=== PATIENT | female | born 1995 | race Caucasian/White ===

== ENCOUNTER 2022-03-07 09:33 | Outpatient (CLI) | payer BC, SELFPAY | END 2022-03-07 09:34 | disposition home or self-care (01) | PROVIDERS: Visit Provider Obstetrics & Gynecology | DX: Z01.419 Encounter for gynecological examination (general) (routine) without abnormal findings (principal); N87.9 Dysplasia of cervix uteri, unspecified; Z13.6 Encounter for screening for cardiovascular disorders | CPT/HCPCS: 80061; 87624; 88175 ==

== ENCOUNTER 2022-11-16 07:15 | Outpatient (CLI) | payer OTHER, SELFPAY ==
--- NOTE | 2022-11-16 07:15 | CRLHL7_ITS ---
For Patients: As a result of the Century Cures Act, medical imaging exams and procedure reports are released immediately into your electronic medical record. You may view this report before your referring provider. If you have questions, please contact your health care provider. INDICATION: First trimester scan, establish dates. COMPARISON: None. TECHNIQUE: Real-time hamilton-scale imaging of the pelvis was performed. FINDINGS: Sonographic imaging demonstrates a single living intrauterine gestation. The embryo demonstrates a regular cardiac rate measuring 168 beats per minute. The embryo`s crown-rump length measurement of 2.0 cm corresponds to a gestational age of 8 weeks 4 days with a sonographic due date of 06/24/2023. There is a normal-appearing yolk sac. There are no gross abnormalities noted within the embryo at this early state of development. The gestational sac has a normal appearance. There is no evidence of a perigestational hemorrhage. The amount of fluid within the sac appears appropriate for gestational age. The cervix is closed. The myometrium appears normal. The ovaries are of normal size. Corpus luteal cyst right ovary. There are no suspicious fluid collections noted in the cul-de-sac. IMPRESSION: Single living intrauterine with sonographic gestational age 8 weeks 4 days and sonographic due date 06/24/2023. Dictated by Ibrahima Thomas MD @ 11/16/2022 11:17:54 AM (Electronically Signed)
== END 2022-11-16 07:16 | disposition home or self-care (01) ==
PROVIDERS: PCP Obstetrics & Gynecology; Visit Provider Physician Assistant
DX: Z34.91 Encounter for supervision of normal pregnancy, unspecified, first trimester (principal); Z3A.08 8 weeks gestation of pregnancy
CPT/HCPCS: 76817; 86703; 86803; 86850; 86900; 86901; 87086; 87340; 87491; 87591

== ENCOUNTER 2022-11-16 08:06 | Outpatient (CLI) | payer OTHER, SELFPAY ==
[2022-11-16 14:05] LABS: Chlamydia DNA Amplified* NOT DETECTED (No Detected); GC DNA Amplified* NOT DETECTED (No Detected)
== END 2022-11-16 08:07 | disposition home or self-care (01) ==
PROVIDERS: PCP Obstetrics & Gynecology; Visit Provider Physician Assistant
DX: Z34.91 Encounter for supervision of normal pregnancy, unspecified, first trimester (principal); Z3A.08 8 weeks gestation of pregnancy
CPT/HCPCS: 86592; 86703; 86762; 86787; 86803; 86850; 86900; 86901; 87086; 87340; 87491; 87591

== ENCOUNTER 2023-02-07 08:05 | Outpatient (CLI) | payer OTHER, SELFPAY ==
--- NOTE | 2023-02-07 08:15 | CRLHL7_ITS ---
For Patients: As a result of the Century Cures Act, medical imaging exams and procedure reports are released immediately into your electronic medical record. You may view this report before your referring provider. If you have questions, please contact your health care provider. INDICATION: Evaluate anatomy. COMPARISON: 11.16.22 TECHNIQUE: Real time hamilton scale imaging of the fetus was performed as well as color Doppler analysis of the umbilical vessels. FINDINGS: Sonographic imaging demonstrates a single living intrauterine gestation. Fetus demonstrates a regular cardiac rate of 150 beats per minute. Fetus has a vertex position. The placenta lies posterior without evidence of placenta previa. The edge of the placenta is located 4.5 cm from the internal cervical os. Amniotic fluid volume appears normal. Single deepest vertical pocket: 4.1 cm. The cervix is closed and measures 4.4 cm in length. The composite ultrasound gestational age is calculated at 20 weeks 3 days with an estimated sonographic due date of 06/24/2023. The estimated weight is 356 grams which lies at the 20th %. The following biometric measurements were obtained: Biparietal diameter: 4.6 cm/19 weeks 6 days 11th% Head circumference: 18.0 cm/20 weeks 3 days 18th% Abdominal circumference: 15.3 cm/20 weeks 3 days 26th% Femur length: 3.4 cm/20 weeks 4 days 26th% The HC/AC ratio measures: 1.18 range (1.07-1.25) On anatomic survey, there is a normal appearance of the cerebral ventricles, cavum septi pellucidi, cisterna magna and cerebellum. The nose, lips, and facial profile appear normal. The cervical, thoracic and lumbar spine are well visualized and appear normal. There is a normal four-chamber heart view and the left and right ventricular outflow tracts appear normal. The diaphragm and stomach appear normal. The kidneys and bladder also appear normal. There is a normal three-vessel cord. The cord insertion site is eccentric. The four extremities appear normal. IMPRESSION: Concordance of clinical and sonographic dating. No intrinsic abnormalities noted on anatomic survey. Eccentric cord insertion into the placenta, incompletely evaluated. This could be followed up in the 3rd trimester. Dictated by Ibrahima Thomas MD @ 02/07/2023 10:03:16 AM (Electronically Signed)
== END 2023-02-07 08:06 | disposition home or self-care (01) ==
LOC: US 08:06
PROVIDERS: Visit Provider Advanced Practice Midwife
DX: Z34.92 Encounter for supervision of normal pregnancy, unspecified, second trimester (principal); Z3A.20 20 weeks gestation of pregnancy
CPT/HCPCS: 76805

== ENCOUNTER 2023-03-28 07:06 | Outpatient (CLI) | payer OTHER, SELFPAY ==
--- NOTE | 2023-03-28 07:15 | CRLHL7_ITS ---
For Patients: As a result of the Century Cures Act, medical imaging exams and procedure reports are released immediately into your electronic medical record. You may view this report before your referring provider. If you have questions, please contact your health care provider. OBSTETRICAL ULTRASOUND, 03/28/2023 TRIXIE by LMP: 06/16/2023. GA: 28 w, 0 d. COMPARISON: 02/07/2023. 11/26/2022. INDICATION: Growth and evaluate placental cord insertion. FINDINGS: The cord insertion into the placenta is located 4 cm from the edge of the placenta. position: Breech. Cervix: Not visualized. Technique: Transabdominal. Placenta/cord: Posterior. Amniotic Fluid: 5.5 cm SDP (greater than/equal to: 2- less than 8 cm). BPD: 7 cm. 28 w 1 d, 41 percent. HC: 26.2 cm. 28 w 4 d, 35 percent. AC: 23.1 cm. 27 w 3 d, 26 percent. FL: 5.2 cm. 27 w 5 d, 26 percent. FL/AC: 22.48 percent. HC/AC Ratio: 1.14. Heart rate: 154 beats per minute. age by this US: 28 w 0 d. TRIXIE by this US: 06/16/2023. EFW: 1110 g. Weight: 2 lbs, 7 oz. Percentile by TRIXIE: 26 percent. IMPRESSION: Single live intrauterine gestation at 20 weeks 0 days TRIXIE of 06/20/2023. The placental cord insertion is located 4 cm from the placental edge. Marie Watkins M.D. Diagnostic/Breast Radiologist [email or web address] Transcribed: 9:56 a.m. JR/Dictated by: Marie Watkins MD @ 03/30/2023 6:23:00 AM (Electronically Signed)
== END 2023-03-28 07:07 | disposition home or self-care (01) ==
LOC: US 07:06
PROVIDERS: Visit Provider Advanced Practice Midwife
DX: Z34.03 Encounter for supervision of normal first pregnancy, third trimester (principal); O26.893 Other specified pregnancy related conditions, third trimester; Z3A.28 28 weeks gestation of pregnancy; Z67.91 Unspecified blood type, Rh negative
CPT/HCPCS: 76816; 86850

== ENCOUNTER 2023-03-28 08:20 | Outpatient (CLI) | payer OTHER, SELFPAY | END 2023-03-28 08:21 | disposition home or self-care (01) | LOC: NFLDREF 11:15 | PROVIDERS: Visit Provider Advanced Practice Midwife | DX: O26.899 Other specified pregnancy related conditions, unspecified trimester (principal); Z67.91 Unspecified blood type, Rh negative; Z34.93 Encounter for supervision of normal pregnancy, unspecified, third trimester | CPT/HCPCS: 86592; 86850 ==

== ENCOUNTER 2023-04-11 07:48 | Outpatient (CLI) | payer OTHER, SELFPAY | END 2023-04-11 07:49 | disposition home or self-care (01) | LOC: NFLDREF 20:45 | PROVIDERS: Visit Provider Advanced Practice Midwife | DX: O26.893 Other specified pregnancy related conditions, third trimester (principal); O99.810 Abnormal glucose complicating pregnancy; Z67.91 Unspecified blood type, Rh negative; Z3A.30 30 weeks gestation of pregnancy | CPT/HCPCS: 82951; 82952 ==

== ENCOUNTER 2023-05-22 17:49 | Outpatient (CLI) | payer OTHER, SELFPAY ==
[2023-05-23 13:51] LABS: Strep B DNA Probe Negative (Negative); Strep B Susceptibility Needed? No
== END 2023-05-22 17:50 | disposition home or self-care (01) ==
LOC: NFLDREF 17:49
PROVIDERS: Visit Provider Advanced Practice Midwife
DX: Z34.93 Encounter for supervision of normal pregnancy, unspecified, third trimester (principal)
CPT/HCPCS: 87081; 87653

== ENCOUNTER 2023-05-29 12:56 | Outpatient (CLI) | payer OTHER, BC, SELFPAY ==
--- NOTE | 2023-05-29 13:00 | CRLHL7_ITS ---
For Patients: As a result of the Cures Act, medical imaging exams and procedure reports are released immediately into your electronic medical record. You may view this report before your referring provider. If you have questions, please contact your health care provider. OB ULTRASOUND TRIXIE by LMP: 06/20/2023. TRIXIE by GA: 36 weeks 6 days. INDICATION: Gestational diabetes mellitus. CERVIX: Not visualized. POSITIONING: Vertex. AMNIOTIC FLUID: 3.7 cm. PLACENTA: Technique: Transabdominal. PLACENTA POSITION: Posterior. DOPPLER: heart rate: 137 bpm. Biometry: BPD: 8.7 cm. 35 w, 1 d, 20 percent. HC: 32.2 cm. 36 w, 2 d, 14 percent. AC: 31.0 cm. 34 w, 6 d, 13 percent. FL: 6.9 cm. 35 w, 2 d, 14 percent. FL/AC ratio: 22 percent. HC/AC ratio: 1.04. EFW: 2616 g. Weight: 5 lbs, 12 oz. age by this US: 35 w, 3 d. TRIXIE by this US: 06/30/2023. Percentile by TRIXIE: 16 percent. IMPRESSION: Single live intrauterine gestation at 35 weeks 3 days. TRIXIE of 06/30/2023. Marie Watkins M.D. Diagnostic/Breast Radiologist [email or web address] ANA MARIA/omari salcido/Dictated by: Marie Watkins MD @ 05/31/2023 11:59:00 AM (Electronically Signed)
== END 2023-05-29 12:57 | disposition home or self-care (01) ==
LOC: US 12:59
PROVIDERS: Visit Provider Advanced Practice Midwife
DX: O24.419 Gestational diabetes mellitus in pregnancy, unspecified control (principal); Z3A.35 35 weeks gestation of pregnancy
CPT/HCPCS: 76816

== ENCOUNTER 2023-06-17 01:51 | Inpatient (IN) | payer BC, SELFPAY ==
[2023-06-17] VITALS (72 sets, daily range): BP systolic 101–152; BP diastolic 56–99; PULSE 70–144; RESP 16–20; TEMP 36.6–37.6; O2SAT 96–100; BMI 38.2
[2023-06-17] MEDS: LACTATED RINGERS 1000 ML 1,000 ML 900 ML IV ×2 (02:05→03:03)
--- NOTE | 2023-06-17 02:28 | W.PM.LDBA ---
Subjective History of Present Illness Narrative: Mary is a 28 yo at 39 4/7 weeks gestation being admitted to Labor and Delivery for spontaneous onset of labor. She reports irregular contractions started around 1 pm yesterday. At about 10 pm, they became more intense and regular. She is supported in labor by her , Skinny. Her full history and physical was dictated by JANNETH Overton on 06/08/2023. Please see this for details. Specific Issues/Plans H&P 05/29/23 by Jonelle Fong CNM 1. Obesity, BMI 34.9 Hemoglobin A1c: 5.2% ASA 81mg, not planning to take 2. Rh neg, partner is Rh+ Recommend Rhogam at 28 weeks: Declined, declination form signed Rhogam: Will consider PP, discuss at that time 3. Eccentric vs marginal cord insertion (not clearly visualized). Recommended repeat US in 3rd trimester. US at 28 weeks: Eccentric insertion, no follow up needed. EGW 26% 4. Gestational Diabetes Failed 1 hr (157) Will do 3 hr, will get Fresh test 100 gram Failed 2/4. GDM Nutrition referral sent. 32wks: 18% elevated. Only 1 PP but 8/12 fasting. See note. 34wks: only 4 total elevated 36 weeks: 2 out of 38 elevated; switched to twice daily BG checks Growth US at 32 weeks: Diagnosed at this time, deferred Growth US at 36 weeks: EFW 16% Consider IOL at 39 0/7-40 6/7 weeks: 5. Breech RESOLVED at 35 6/7 weeks gestation Consider US on admission for labor Covid: Flu: declines Tdap: declines RSV: declines OB - Problem Based A/P Additional Plan (1) Spontaneous onset of labor: Status: Acute (2) Pain during labor: Status: Acute (3) 39 weeks gestation of : Status: Acute (4) Gestational diabetes mellitus (GDM) affecting first : Status: Acute (5) Rh negative status during : Status: Acute Plan ASSESSMENT:? 28 at 39 4/7 weeks gestation? complicated by:?Obesity, Rh negative, Gestational Diabetes Labor type: Spontaneous, Early labor? Category 1 FHR pattern.?Initially Cat II, resolved with position changes Labor complicated by: GDM? GBS negative? ? PLAN:? 1. Routine intrapartum cares as ordered. Continue with expectant management? 2. Monitoring per policy, continuous? 3. Considering an epidural. Candidate for analgesia of choice if desired.?? 4. Patient encouraged to reposition and ambulate to promote physiologic labor and .? 5. Monitor blood sugar and manage per protocol for GDM in labor. 6. Anticipate ? Delivery/Labor/Induction Plan Plan: expectant management OB Result Labs Blood Type: B (-) negative GBS Status: negative OB Exam Physical Exam Vital signs: Temp Pulse Resp BP 99.6 F 83 20 132/85 06/17/23 01:15 06/17/23 01:39 06/17/23 01:15 06/17/23 01:39 Narrative: Vitals Reviewed Constitutional:? Alert and oriented x3 HEENT:? Normocephalic, atraumatic Neck:? Supple Lungs:? Clear to auscultation bilaterally Heart:? Regular rate and rhythm, no murmur, rub or gallop Abdomen:? Soft, nontender, and gravid. Vertex by Phil's, confirmed with cervical exam. Extremities:? No edema or erythema Cervix: 5 cm/90%/+1 station/vertex with bulging bag of water per RN NST: 150 bpm/moderate variability/15x15 accelerations/late decelerations/contractions every 2-3 minutes Late decelerations resolved with position changes, then Category I tracing Detailed Labor and Delivery Exam Patient Gravid: Yes
[2023-06-17] MEDS: LIDOCAINE 2% (PF) 5 ML VIAL EPIDURAL (02:50)
[2023-06-17] MEDS: ROPIVACAINE 0.2% 100 ml 100 ML 12 MG EPIDURAL (02:51)
--- NOTE | 2023-06-17 02:57 | PM.ANBPRC ---
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 Engaged, getting in February. Nonsmoker What is your current living situation?: I presently have a place to live Problems where you live: no known problems In the past 12 months, utilities in danger of being shut off: no In past 12 months, lack of transportation kept you from medical appts, meetings, work, or getting things needed for daily living: no In the past 12 mos, have been you worried that your food would run out before you had money to buy more?: never true In the past 12 mos, the food you bought just didn't last and you didn't have money to buy more?: never true Smoking Status: Never smoker How often does anyone, including family, friends and others, physically hurt you: never How often does anyone, including family, friends and others, insult or talk down to you: never How often does anyone, including family, friends and others, threaten you with harm: never How often does anyone, including family, friends and others, scream or curse at you: never Little interest or pleasure in doing things: not at all Feeling down, depressed, or hopeless: not at all Meds Home Medications and Allergies Home Medications Medication Instructions Recorded Confirmed Type docosahexaenoic acid 200 mg mg PO 12/14/22 06/12/23 History capsule ( DHA) Allergies Allergy/AdvReac Type Severity Reaction Status Date / Time No Known Drug Allergies Allergy Verified 06/17/23 01:08 Results Vital Signs Vital Signs: Last Vital Signs Temp 99.6 F 06/17/23 01:15 Pulse 77 06/17/23 02:54 Resp 20 06/17/23 01:15 BP 126/63 06/17/23 02:54 Pulse Ox 100 06/17/23 02:52 Weight: 110.677 kg Height: 170.18 cm Anesthesia Procedures Epidural Insertion Patient Location: OB Start Time: 02:30 Stop Time: 03:10 Start Date: 06/17/23 Stop Date: 06/17/23 Reason for Block: primary anesthetic Patient Position: sitting Performed By: Mao Caldwell Preanesthetic Checklist: IV checked, risks and benefits discussed, surgical consent, monitors and equipment checked, pre-op evaluation, timeout performed and anesthesia consent Prep: chlorhexidine gluconate Monitoring: blood pressure monitoring, vehicle monitor technician, continuous pulse oximetry and heart rate Approach: midline Vertebral Space: lumbar (1-5) Needle Type: Tuohy needle Injection Technique: continuous catheter (catheter) Needle gauge: 17 Needle Length (cm): 10 cm Needle Insertion Depth (cm): 5 Catheter Gauge: 19 Catheter Type: multi-orifice Catheter at skin depth (cm): 11 Test Dose Result: negative and lidocaine 1.5% with epinephrine 1 to 200,000
[2023-06-17] MEDS: PHENYLEPHRINE 100 MCG/ML SYRINGE IVP ×2 (03:05→04:17)
[2023-06-17] MEDS: fentaNYL 100 MCG/2 ML inj IVP (03:51)
--- NOTE | 2023-06-17 04:05 | PM.OBPNL ---
Subjective Date Seen: 06/17/23 Narrative: Mary is a at 39 4/7 weeks gestation that presented with spontaneous labor. She was coping well in the tub before getting an epidural. Since epidural placement she has had repetitive late decelerations. It is currently in the process of being adjusted since she has not had pain relief on her right side. Her labor is supported by her . Objective Exam: Objective: Constitutional: Alert and oriented x3, moderate distress, coping well Vital signs stable, see nurse documentation Abdomen: gravid, contractions palpate moderate/strong with contractions and soft between Cervix: 6 cm/90%/0 station/vertex/AROM mec fluid NST: 150 bpm/moderate variability (with episodes of minimal)/no accelerations/late decelerations/contractions every 1-3 minutes Vital Signs: Last Vital Signs Temp 99.6 F 06/17/23 01:15 Pulse 76 06/17/23 03:52 Resp 20 06/17/23 01:15 BP 149/91 H 06/17/23 03:52 Pulse Ox 100 06/17/23 03:08 Assessment Assessment: active labor Amniotic Membrane Status: AROM Plan Plan: ASSESSMENT:? 28 at 39 4/7 weeks gestation? complicated by:?Obesity, Rh negative, Gestational Diabetes Labor type: Spontaneous, Early labor? Category II FHR pattern. Labor complicated by: GDM? GBS negative? ? PLAN:? 1. Routine intrapartum cares as ordered. Continue with expectant management? 2. Monitoring per policy, continuous. Continue to manage FHR changes with position changes, fluid, and BP control. 3. Continue epidural for pain management 4. Patient encouraged to reposition to promote physiologic labor and .? 5. Monitor blood sugar and manage per protocol for GDM in labor. 6. Anticipate ?
--- NOTE | 2023-06-17 04:09 | SUR.ANES ---
0350 pt states epidural only works on left side. Pulled catheter back 1cm, positioned pt on right side. Bolused epidural catheter with 100mcg Fentanyl.
[2023-06-17] MEDS: ePHEDrine sulfate 5 MG/ML inj 10 MG IVP (04:58)
[2023-06-17] MEDS: LACTATED RINGERS 1000 ML 1,000 ML 125 ML IV (05:42)
[2023-06-17] MEDS: LIDOCAINE 1 % PF 30 ML INJECTION (06:25)
--- NOTE | 2023-06-17 06:59 | W.PM.OBVAGDE ---
OB Procedure Vag Delivery Mother Details Mother Details: Mary is a 28 year-old, 1, now Para 1, admitted on 06/17/23 at 39.4 weeks gestation. : 1 Para: 1 Weeks Gestation: 39.4 Admission Date: 06/17/23 Additional Details Amniotic Membrane Status: AROM Amniotic Membrane Rupture Date: 06/17/23 Amniotic Membrane Rupture Time: 03:20 Amniotic Membrane Fluid Description: Meconium Stained Analgesia/Anesthesia Type: Epidural Waterbirth: No Pitcoin: Yes ([facility] only) Intrapartal Events: Distress (Repetative lates) Labor Onset: 22:00 Complete: 05:02 Pushin:13 Heart: heart tones during second stage were category II with lates and variable decelerations with slow return to baseline between contractions. Variability remained moderate during pushing, an improvement from previous. Delivery Details Delivery Date: 06/17/23 Delivery Time: 06:13 Route of delivery: Infant Gender: Female Viability: Alive; Heart Rate Present Position at Delivery: OA Delivery Details: Patient was admitted for spontaneous onset of labor and progressed normally with AROM at 0320 with light meconium stained fluid. After admission to labor and delivery, she requested an epidural. She initially did not get much relief from her epidural, having pain on her right side. After epidural placement, the heart rate tracing was consistently category II with repetitive late decelerations. It did not improve with trouble shooting epidural, position changes, BP management, or fluids. OB was notified of tracing and recommended monitoring for another hour. Before the hour, Patient was complete at 0502 and began pushing at 0516. of a viable female at 0613 in semi-fowlers on the bed. Vertex delivered OA with nuchal cord, delivered through. No shoulder. Body delivered easily and without incident. Peds in attendance of delivery. Infant passed to mothers abdomen with a vigorous cry. Cord was clamped and cut at > 5 minutes. APGARS were 8 at one minute and 9 at five minutes respectively. Mouth was bulb suctioned. Intact placenta with a 3 vessel cord delivered spontaneously at 0620. Fundus firm. Labial laceration identified and repaired in typical fashion. QBL 150 cc. Mother and baby stable; mother plans to breastfeed. Infant weight pending. 1 Minute Interval Total Score: 8 5 Minute Interval Total Score: 9 Additional Details Shoulder Dystocia: No Placenta Delivery Time: 06:20 Placental Delivery Description: Spontaneous Delivery repair: Vicryl Procedure Done: Global Blood Loss: 150 Laceration: Labial (extends from apex of labia with labial separation ) Blood Loss Measurement Type: QBL Bakri Used: No Sponge/Need Count Correct: Yes Cord Vessel Description: 3 Vessels, Nuchal Cord and Delivered through Event Summary Status: Mother and were stable after delivery. Pt had a few elevated BP's throughout labor. She did have two elevated BP's 4 hours apart, however she was given doses of phenylephedrine and/or ephedrine to treat BP/ heart rate changes at those times. Since then she has not had any elevated BP's. Will draw labs for a baseline. Disposition: floor
[2023-06-17 07:49] LABS: Hematocrit 35.2 % (33.0-51.0); Hemoglobin* 11.8 gm/dL (12.0-16.0); Mean Corpuscular HGB Conc 34 gm/dL (32-36); Mean Corpuscular Hemoglobin 29 pg (26-34); Mean Corpuscular Volume 85 fL (80-100); Platelet Count* 231 K/uL (140-440); Red Blood Count 4.14 m/uL (4.00-5.20); White Blood Count* 13.32 K/uL (4.50-11.00)
[2023-06-17 07:57] LABS: Slide Review Reflex No
[2023-06-17 08:07] LABS: Alanine Aminotransferase* 25 U/L (4-35); Aspartate Amino Transferase* 29 U/L (12-35); Blood Urea Nitrogen* 10 mg/dL (5-24); Creatinine* 0.5 mg/dL (0.5-1.5); Est. Creatinine Clearance* 161.44; Estimated Glomerular Filt Rate 130 ml/min
[2023-06-17] MEDS: IBUPROFEN 600 MG TABLET PO ×2 (16:32→23:53)
[2023-06-18 04:45] VITALS: BP 104/65; PULSE 71; RESP 14; TEMP 36.4; O2SAT 97
[2023-06-18 06:41] LABS: Hemoglobin* 11.7 gm/dL (12.0-16.0)
--- NOTE | 2023-06-18 07:36 | P.OBPN_ITS ---
OB - PN:Subj Subjective Date Seen: 06/18/23 Patient comments OB post-: no complaints, tolerating diet and flatus present [place] status: and doing well [place] feeding status: exclusively Narrative: Complications:? none? The patient feels well.? The pain is well controlled with current medications.? She has no new complaints.? Urinary output is adequate and she is voiding w ithout difficulty.? Has a good appetite, is tolerating a general diet, is passing flatus, and has not had a bowel movement.? Has small amount of rubra lochia.? She is ambulating well.?She is and feels that it is going well but baby has been sleepy at the breast. She is uncertain if she wants to discharge today or tomorrow. I will plan on her staying and if she decides she wants to discharge I will do that teaching this afternoon. She would like to see today. Her fasting blood sugar this morning was WNL at 84. Her blood pressures have been normal since delivery. OB - PN: Obj Exam Physical Exam: Vital signs: Temp Pulse Resp BP Pulse Ox O2 Del Method 97.6 F 71 14 104/65 97 Room Air 06/18/23 04:45 06/18/23 04:45 06/18/23 04:45 06/18/23 04:45 06/18/23 04:45 06/18/23 04:45 Narrative: GENERAL APPEARANCE:? normal affect, alert, no distress? MOOD:? appropriate? CHEST:? clear to auscultation and percussion? HEART:? regular rate and rhythm? ABDOMEN:? soft, non-tender the uterine fundus is U/2 and is appropriate for the stage of recovery.? PERINEUM:? mild edema of the perineum, there is a labial laceration that is healing well.? EXTREMITIES:? normal and no edema? OB - PN: Obj Data Labs Labs: Laboratory Results - last 24 hr 06/17/23 06/18/23 07:40 06:25 WBC 13.32 H RBC 4.14 Hgb 11.8 L 11.7 L Hct 35.2 MCV 85 MCH 29 MCHC 34 Plt Count 231 BUN 10 Creatinine 0.5 Estimated Creat Clear 161.44 Estimated GFR 130 AST 29 ALT 25 OB - PN: A/P Delivery Assessment and Plan (1) Gestational diabetes mellitus (GDM) affecting first : Status: Acute (2) Rh negative status during : Status: Acute (3) Lactating mother: Status: Acute (4) care following vaginal delivery: Status: Acute Plan day: 1 Plan: routine care Comments: Anticipate discharge home tomorrow.
[2023-06-18 09:03] VITALS: BP 115/76; PULSE 68; RESP 16; TEMP 36.8
[2023-06-18] MEDS: DOCUSATE SODIUM 100 MG CAPSULE PO (09:18)
[2023-06-18] MEDS: ACETAMINOPHEN 500 MG TABLET 1000 MG PO (13:36)
--- NOTE | 2023-06-18 14:55 | P.DS_ITS ---
DS: Providers Provider Date Seen: 06/18/23 Date of admission: 06/17/23 01:51 Primary care physician: Not a Local Provider Admitting Clinician: Padma Howe CNM Attending Physician on discharge: Padma Howe CNM Date of Discharge: 06/18/23 DS: Diagnosis Discharge Diagnosis (1) care following vaginal delivery: Status: Acute (2) Lactating mother: Status: Acute (3) Gestational diabetes mellitus (GDM) affecting first : Status: Acute (4) Rh negative status during : Status: Acute Exam Narrative: Exam Narrative: GENERAL APPEARANCE:? normal affect, alert, no distress? MOOD:? appropriate? CHEST:? clear to auscultation and percussion? HEART:? regular rate and rhythm? ABDOMEN:? soft, non-tender the uterine fundus is U/2 and is appropriate for the stage of recovery.? PERINEUM:? mild edema of the perineum, there is a labial laceration that is healing well.? EXTREMITIES:? normal and no edema Const: Vital Signs, click to edit/add: Vital Signs - 24 hr 06/17/23 16:10 06/17/23 21:14 06/17/23 23:50 Temperature 99.3 F 97.8 F 98.2 F Pulse Rate Pulse Rate [Blood Pressure Cuff] 99 89 86 Respiratory Rate 16 16 16 Blood Pressure Blood Pressure [Ri ght Arm] 133/86 122/74 120/76 Pulse Oximetry 98 96 Oxygen Delivery Me thod Room Air Room Air 06/18/23 04:45 06/18/23 09:03 06/18/23 10:07 Temperature 97.6 F 98.2 F 97.9 F Pulse Rate 85 Pulse Rate [Blood Pressure Cuff] 71 68 Respiratory Rate 14 16 16 Blood Pressure 113/73 Blood Pressure [Ri ght Arm] 104/65 115/76 Pulse Oximetry 97 97 Oxygen Delivery Me thod Room Air 06/18/23 10:14 Temperature 98.1 F Pulse Rate 82 Pulse Rate [Blood Pressure Cuff] Respiratory Rate 16 Blood Pressure 108/68 Blood Pressure [Ri ght Arm] Pulse Oximetry 98 Oxygen Delivery Me thod OB - DS: Summary Hospital Course Hospital Course: The patient is a 28 year old G 1 P 1 at 39.4 weeks gestation that was admitted to the Center on 06/17/23 for active labor. She had an uncomplicated vaginal delivery. She delivered a viable female . She is breast feeding and it is going ok. She met with today and plans to see them again on Sunday. ? the patient has done well. The patient feels well.? The pain is well controlled with current medications.? She has no new complaints.? Urinary output is adequate and she is voiding without difficulty.? Has a good appetite, is tolerating a general diet, is passing flatus, and has not had a bowel movement.? Has scant amount of rubra lochia.? She is ambulating well. Earlier today she was unsure if she wanted to discharge today or tomorrow but did decide to discharge today. Peripartum Data delivery method: Vaginal Laceration description: Labial Episiotomy description: None complications: none Gender: Female Discharge Plan: Home Status at Discharge Functional status at discharge: independent ambulation Overall status at discharge: patient is progressing back to baseline Time Spent with Patient Time attestation: Total time spent providing and/or coordinating discharge services: Discharge Plan Discharge Disposition: Home, Self-Care Date of Admission: 06/17/23 01:51 Attending Provider on Discharge: Chaor Fong Primary Care Provider: Provider,Not a Local Condition: Stable Anticipated Discharge Date/Time: 06/18/23 16:00 Discharge Medications: New docusate sodium 100 mg Capsule 100 mg PO DAILY Qty: 90 0RF Rx Instructions: Take 1-2 tablets daily as needed for constipation. ibuprofen 600 mg Tablet 600 mg PO Q6H PRNQty: 30 0RF Continued DHA 200 mg capsule PO No Action (DME) Test Strips Misc See Rx Instructions .MEDSUPPLY Qty: 360 3RF Rx Instructions: Test blood sugar 4 times daily. (DME) lancets Misc See Rx Instructions .MEDSUPPLY Qty: 360 3RF Rx Instructions: Test blood sugar 4 times daily. (DME) Blood Glucose Meter Misc See Rx Instructions .MEDSUPPLY Qty: 1 0RF Rx Instructions: As directed Discharge Orders: Discharge Order (Routine); Ordered 06/18/23 Ordered By: Charo Fong Patient Education: OB Over the Counter Medication Information, OB Vaginal/Breast Feeding Additional Instructions: Discharge instructions were reviewed with the patient including signs and symptoms of infection and home going medications.? Lifting Restrictions: 20 pounds for 6? weeks? ?? Do not drive while taking narcotic pain meds.? Off Work or School for 6 weeks.? ?? Symptoms to report to doctor:? -Bleeding that saturates more than one pad per hour? -Passing clots larger than the size of a golf ball? -Pain not relieved by prescribed medication? -Fever above 100.4 degrees Fahrenheit? -A foul vaginal odor? -Difficulty in emotions, mood and functions? -Thoughts of hurting yourself and/or ? -Painful, reddened area in your breast? -Any drainage, redness or tenderness in your IV/epidural site? -Severe headache that doesn't improve after taking medications? -Changes in vision, including temporary loss of vision, blurred vision, and/or light sensitivity? -Upper abdominal pain (usually under ribs on the right side)? -Decrease in urination or painful, frequent urinating? -Chest pain? -Shortness of breath? -Tenderness or pain with redness and/swelling in the calf(s) of your leg? ?? Follow Up in clinic in 2 and 6 weeks.? ?? consultation services are available to all mothers and babies for the first year after delivery.? To make an appointment, please call [phone].? Activity Level: Activity as Tolerated Discharge Diet: Regular Follow Up Appointments: [facility] [Provider Group] Provider,Not a Local [Primary Care Provider] - Forms: [employer] Info Instructions
== END 2023-06-18 16:21 | disposition home or self-care (01) | DRG 560 ==
LOC: OB OUT 01:51 → OB 01:51
PROVIDERS: Admitting Provider Advanced Practice Midwife; Visit Provider Advanced Practice Midwife
DX: O24.420 Gestational diabetes mellitus in childbirth, diet controlled (principal); O70.0 First degree perineal laceration during delivery; O99.214 Obesity complicating childbirth; Z3A.39 39 weeks gestation of pregnancy; O26.893 Other specified pregnancy related conditions, third trimester; Z67.21 Type B blood, Rh negative; O77.0 Labor and delivery complicated by meconium in amniotic fluid; O76 Abnormality in fetal heart rate and rhythm complicating labor and delivery; Z37.0 Single live birth
CPT/HCPCS: 01967; 36415; 36430; 82565; 82570; 84156; 84450; 84460; 84520; 85018; 85027; 85461; 88307; A9270; J2001; J2371; J2791; J2795; J3010; J7120

== ENCOUNTER 2023-06-20 13:02 | Outpatient (CLI) | payer BC, SELFPAY ==
--- OUTSIDE RECORDS SUMMARY | 2023-06-20 13:04 | XMS_ITS | Referral Summary ---
Author Name Unknown Organization [place] Address [facility] [place] [address] Care Team Providers Care Junior Financial Analyst Name Role Phone Unavailable Primary Care Provider Unavailabl e Allergies Active Allergy Reactions Criticality Noted Date Comments No Known Drug Allergy 06/18/2001 Medications Medication Sig Dispensed Refills Start Date End Date Status NO ACTIVE MEDICATIONS . 0 0 06/18/2001 Active AMOXICILLIN CHEW 400 MG OR 1 PO BID x 10 20 0 06/18/2001 Active Active Problems No known active problems Social History Tobacco Use Types Packs/Day Years Used Date Smoking Tobacco: Unknown Smokeless Tobacco: Never Comments:No exposure to 2nd hand smoke Alcohol Use Standard Drinks/Week Comments Yes 0 (1 standard drink = 0.6 oz pur e alcohol) Adolescent Education Answer Date Record ed Getting School Help Needed Not on file 03/18 Sex and Gender Information Value Date Recorded Sex Assigned at Not on file Gender Identity Not on file Sexual Orientation Not on file Last Filed Vital Signs Vital Sign Reading Time Taken Comments Blood Pressure 110/60 06/29/2021 12:39 PM BILINGUAL SCHOOL PSYCHOLOGIST Pulse 84 06/29/2021 12:39 PM BILINGUAL SCHOOL PSYCHOLOGIST Temperature 37 ??C (98.6 ??F) 06/29/2021 12: 39 PM BILINGUAL SCHOOL PSYCHOLOGIST Respiratory Rate 16 06/29/2021 12:3 9 PM BILINGUAL SCHOOL PSYCHOLOGIST Oxygen Saturation 99% 06/29/2021 12: 39 PM BILINGUAL SCHOOL PSYCHOLOGIST Inhaled Oxygen Concentration - - Weight 103.1 kg (227 lb 6.4 oz) 022 12:39 PM BILINGUAL SCHOOL PSYCHOLOGIST Height - - Body Mass Index - - Plan of Treatment Not on file
--- OUTSIDE RECORDS SUMMARY | 2023-06-20 13:04 | XMS_ITS | Encounter Summary ---
Author Name Unknown Organization [facility] Address [address] [place] [address] Care Team Providers Care Political Researcher Name Role Phone Elsewhere, Pcp Primary Care Provider Unavailabl e Reason for Visit * Reason Comments Leg Pain 27 year old female a dmits with complaints of left lower leg pain. Pt states she was pushing a heavy cart while at work and felt sudden pain in back of left lower leg * Auth/Cert (Routine) Specialty Diagnoses / Procedures Referred By Seth t Referred To Contact Diagnoses left leg pain Procedures ER visit Referral ID Status Reason Start Date Expiration Date Visits Re quested Visits Authorized [id number] 1 1 Encounter Details Date Type Department Care Team (Late st Contact Info) Description 09/07/2022 3:40 PM CDT - 09/07/2022 4:19 PM CDT Emergency [facility] [address] [place] [id number] Sonali Haney P.A.-Hung., P.A., M.S. [address] [place] [phone] Pain In Left Lower Leg (Primary Dx) Discharge Disposition: Home or Self Care Social History Tobacco Use Types Packs/Day Years Used Date Smoking Tobacco: Never Nutrition Answer Date Recorded Nutrition: EVOO Fat Source Unknown 09/07 Nutrition: Servings of Fruits/Vegetables per Day Not on file 09/07/2022 Dental Answer Date Recorded Dental: Regular Dentist Unknown 09/08/19 Sex and Gender Information Value Date Recorded Sex Assigned at Not on file Gender Identity Not on file Sexual Orientation Not on file documented as of this encounter Last Filed Vital Signs Vital Sign Reading Time Taken Comments Blood Pressure 134/84 09/07/2022 3:49 PM CDT Pulse 98 09/07/2022 3:49 PM CDT Temperature 37.2 ??C (99 ??F) 09/07/2022 3:49 PM CDT Respiratory Rate 20 09/07/2022 3:49 PM CDT Oxygen Saturation 100% 09/07/2022 3:49 PM CDT Inhaled Oxygen Concentration - - Weight 102 kg (225 lb 15.5 oz) 09/07/2022 3:50 P M CDT Height - - Body Mass Index 35.89 07/07/2014 8:03 AM HOGSHEAD WEIGHER documented in this encounter Discharge Instructions * Attachments The following attachments cannot be sent through Care Everywhere. * Muscle Strain [id number] (Hungarian) documented in this encounter ED Notes * Sonali Haney P.A.-C. - 09/07/2022 3:42 PM CDT CHIEF COMPLAINT/REASON FOR VISIT Leg Pain (27 year old female admits with complaints of left lower leg pain. Pt states she was pushing a heavy cart while at work and felt sudden pain in back of left lower leg) HISTORY OF PRESENT ILLNESS Mary Baca is a 27 y.o. 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 The patient reports constant, nonradiating, 8/10, posterior left calf pain. Pain is worse with movement, ambulation and palpation. Pain is relieved with rest. She has not taken anything for pain relief. She reports experiencing tingling in her toes at the time of injury, however reports resolution of this symptom. She has been ambulating with a limp due to pain. She denies any bruising, swelling or deformity of lower leg. No rec ent travel, recent surgery, prolonged immobility, exogenous estrogen, treatment for malignancy, h/oDVT/PE, or family history of bleeding/clotting. No other injuries or complaints. Past Medical History: Reviewed in the EMR. Agree with nursing documentation. Pertinent past medicalhistory noted per HPI. None Medications: No current facility-administered medications on file prior to encounter. No current outpatient medications on file prior to encounter. Family History: No family history on file. Social History: Reviewed in the EMR. Agree with nursing documentation. Pertinent social history noted per HPI. Social History Tobacco Use Smoking status: Never REVIEW OF SYSTEMS ROS is negative unless otherwise stated in the HPI. PHYSICAL EXAMINATION Nursing notes reviewed. Initial Vitals [09/07/22 1549] Temperature 37.2 ??C Pulse Rate 98 Heart Rate Resp Rate 20 Blood Pressure 134/84 SpO2 100 % Pain Score 8 Vitals: 09/07/22 1549 09/07/22 1550 BP: 134/84 BP Location: Left arm Patient Position: Sitting Pulse: 98 Resp: 20 Temp: 37.2 ??C TempSrc: Tympanic SpO2: 100% Weight: 102 kg General: Awake, alert, oriented x3. Well-developed, hydrated and nourished. Appears stated age. Nontoxic. No apparent distress. Head: Normocephalic, atraumatic. Eyes: Normal sclerae and conjunctivae, PERRLA, extraocular movements intact ENT: Oropharynx is clear. Tongue is midline and normal in appearance without lesions. No buccal lesions noted. No posterior pharyngeal erythema or exudate. No tonsillar enlargement. Nose is symmetric. Nares patent. Moist mucus membranes. Hearing is grossly normal. Neck: Supple, full range of motion. Chest/Lungs: Normal respiratory effort. No labored breathing. No stridor, retractions, or respiratory distress. Lungs clear to auscultation bilaterally. Back: Normal to inspection. No deformity or external signs of trauma. Ext: Warm, well-perfused. No cyanosis, clubbing, or edema. Left calf is tender on palpation. There is no bruising, swelling or deformity. There is no tenderness over Achilles tendon. Osei test isnegative. Motor function is normal with full strength bilaterally to upper and lower extremities. Gait is slow with limp. Skin: Warm, dry, normal color for ethnicity. No rashes or diaphoresis. Nailbeds pink with no cyanosis or clubbing. Neuro: Awake, alert, GCS 15, speech clear, cranial nerves II-XII grossly intact, normal bulk, tone and strength in all extremities, normal sensation x4 without focal deficits. Memory is normal and though process is intact. Vascular: Peripheral pulses symmetric, normal cap refill. Psych: Pleasant and appropriate. ED Course as of 09/08/22 1055 Fabiola Sep 07, 2022 1551 Met with patient to perform history and physical exam, outline emergency department work up and initial treatment, as well as explain expected time frame. Final Diagnoses: as of 09/08/22 1055 Pain In Left Lower Leg MEDICAL DECISION MAKING: In summary, this is a pleasant 27 y.o. 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 The patient reports constant, nonradiating, 8/10, posterior left calf pain. Pain is worse with movement, ambulation and palpation. Pain is relieved with rest. She has not taken anything for pain relief. She reports experiencing tingling in her toes at the time of injury, however reports resolution of this symptom. She has been ambulating with a limp due to pain. No other associated symptoms. No DVT/PE risk factors. On ER arrival, the patient is well appearing, nontoxic with normal vitals. Exam reveals tenderness over the left calf with no bruising, swelling or deformity. There is no tenderness over Achilles tendon. Osei test is negative. Gait is steady with a limp. Differential diagnoses: Sprain, strain, contusion, fracture, dislocation, compartment syndrome, ruptured Carlin's cyst, hematoma, DVT, among others. ED course/interventions: Met with patient upon ER arrival. Ibuprofen was ordered for pain relief. Considered imaging, however xray was not felt warranted as there was no injury or trauma to suggest fracture or dislocation. Considered ultrasound to rule out ruptured Carlin's cyst vs muscle hematoma, however we do not have ultrasound capability in [place] today. DVT is felt unlikely in absence of risk factors and based on mechanism of injury, so transfer to [place] ER for emergent ultrasoundis not felt warranted. Based on history, exam and diagnostics, symptoms are most consistent with a muscle strain vs hematoma vs ruptured Carlin's cyst. Using shared decision making, the patient is felt appropriate for discharge and will be discharged home with conservative management, OTC analgesics, RICE, weight bear as tolerated and close follow up with PCP. Work note provided per patient request. Danger signs were discussed for return. -- History was obtained from the patient and EMR review. -- Nursing documentation and prior inpatient and outpatient records were reviewed in the electronicmedical record to facilitate decision making regarding patient care. -- I personally reviewed by visualization, independent interpretation, and discussed with the patient the results of imaging studies as noted above. -- Consultation: None -- Prescription management: No new prescriptions or changes to existing home medications. -- Social determinants of health: The patient has access to health care and transportation. No barriers to care identified. Follow up with established [facility] PCP for reassessment. Medications ibuprofen tablet 600 mg (MOTRIN) (600 mg oral Given 09/07/22 1609) FINAL DIAGNOSIS: 1. Pain In Left Lower Leg ED Prescriptions None DIAGNOSTIC RESULTS Labs Reviewed - No data to display No orders to display Sonali Haney P.A.-C. 09/08/22 1055 documented in this encounter Plan of Treatment Not on file documented as of this encounter Visit Diagnoses Diagnosis Pain In Left Lower Leg- Primary documented in this encounter Administered Medications Inactive Administered Medications - up to 3 most recent administrations Medication Order MAR Action Action Date Dose Rate Site ibuprofen tablet 600 mg (MOTRIN) 600 mg, oral, Once, On Fabiola 09/07/22 at 1605, For 1 dose, Take with food or milk if GI disturbances occur with use. Given 09/07/2022 4:09 PM CDT 600 mg documented in this encounter Active and Recently Administered Medications Times are shown in CDT. Scheduled Medication Order 09/05/2022 09/06/2022 09/07/2022 ibuprofen tablet 600 mg (MOTRIN) (COMPLETED) 600 mg, oral, Once, On Fabiola 09/07/22 at 1605, For 1 dose, Take with food or milk if GI disturbances occur with use. 1609 (Given - Provid er: Airam Castillo R.N.) documented in this encounter Care Teams Political Researcher Relationship Specialty Start Date End Date Elsewhere, Pcp PCP - General 02/09/19 documented as of this encounter
--- OUTSIDE RECORDS SUMMARY | 2023-06-20 13:04 | XMS_ITS | Clinical Summary ---
Author Name Unknown Organization [place] Address [facility] [place] [address] Care Team Providers Care Behavioral Science Chair Name Role Phone Unavailable Primary Care Provider [...] Comments Blood Pressure 110/60 06/29/2021 12:39 PM SILK HANGER Pulse 84 06/29/2021 12:39 PM SILK HANGER Temperature 37 ??C (98.6 ??F) 06/29/2021 12: 39 PM SILK HANGER Respiratory Rate 16 06/29/2021 12:3 9 PM SILK HANGER Oxygen Saturation 99% 06/29/2021 12: 39 PM SILK HANGER Inhaled Oxygen Concentration - - Weight 103.1 kg (227 lb 6.4 oz) 022 12:39 PM SILK HANGER Height - - Body Mass Index - - Plan of Treatment Health Maintenance Due Date Last Done Comments ADVANCE CARE PLANNING 1994 ANNUAL REVIEW OF HM ORDERS 1994 YEARLY PREVENTIVE VISIT 1994 COVID-19 Vaccine (#1) 1994 HIV SCREENING 2009 HEPATITIS C SCREENING 2012 PAP 2015 PHQ-2 (once per calendar year) 2022 INFLUENZA VACCINE (#1) 2023 DTAP/TDAP/TD IMMUNIZATION (8 - Td or Tdap) 11/01/2023 10/31/2013, 01/02/2007, 01/18/2000, Additional history exists HEPATITIS B IMMUNIZATION Completed 995, 1994, 1994 IPV IMMUNIZATION Completed 01/18/2000, 12/1994, 1994, Additional history exists HPV IMMUNIZATION Aged Out No longer e ligible based on patient's age to complete this topic MENINGITIS IMMUNIZATION Aged Out No l onger eligible based on patient's age to complete this topic Pneumococcal Vaccine: Pediatrics (0 to 5 Years) and At-Risk Patients (6 to 64 Years) Aged Out No longer eligible based on patient's age to complete this topic RSV MONOCLONAL ANTIBODY Aged Out No l onger eligible based on patient's age to complete this topic
--- OUTSIDE RECORDS SUMMARY | 2023-06-20 13:04 | XMS_ITS | Clinical Summary ---
Author Name Unknown Organization [facility] Address [address] [place] [address] Care Team Providers Care System Development Manager Name Role Phone Elsewhere, Pcp Primary Care Provider Unavailabl e Source Comments Patient records contain information from all sites at [facility]. For routine questions regarding patient records, call [phone] during business hours, M-F 8:00 AM - 5:00 PM Central Time. Record requests for emergency care only can be directed to [phone] at any time.[facility] Allergies No known active allergies Immunizations Name Administration Dates Next Due Tdap 10/31/2013 Social History Tobacco Use Types Packs/Day Years [...] oz) 09/07/2022 3:50 P M CDT Height 169 cm (5' 6.54) 07/07/2014 8:03 AM ECONOMICS FACULTY MEMBER Body Mass Index 35.89 07/07/2014 8:03 AM ECONOMICS FACULTY MEMBER Plan of Treatment Health Maintenance Due Date Last Done Comments Cervical Cancer Screening 1994 HIV Screening 1994 Hepatitis C Screening 1994 COVID-19 Vaccine (#1) 1994 Depression Screening (Annual PHQ-2) 06/11/2022 Influenza Vaccine (#1) 2023 DTaP,Tdap,and Td Vaccines (8 - Td or Tdap) 11/01/2023 10/31/2013, 01/02/2007, 01/18/2000, Additional history exists Hepatitis B Vaccines Completed 1994, 1994, 1994 HPV Vaccines Aged Out No longer eligi ble based on patient's age to complete this topic Pneumococcal vaccine (0-64 years) Aged Out No longer eligible based on patient's age to complete this topic Care Teams System Development Manager Relationship Specialty Start Date End Date Elsewhere, Pcp PCP - General 02/09/19
--- OUTSIDE RECORDS SUMMARY | 2023-06-20 13:04 | XMS_ITS ---
Author Name Unknown Organization [facility] Address [address] [place] [address] Care Team Providers Care Catalytic Case Operator Name Role Phone Unavailable Unavailable Unavailable Surgery Details Not on file Complications Check Surgery Details section. Procedure Estimated Blood Loss Check Surgery Details section. Procedure Findings Check Surgery Details section. Procedure Specimens Taken Check Surgery Details section.
--- OUTSIDE RECORDS SUMMARY | 2023-06-20 13:04 | XMS_ITS | Referral Summary ---
Author Name Unknown Organization [facility] Address [address] [place] [address] Care Team Providers Care Conference Concierge Name Role Phone Elsewhere, Pcp Primary Care Provider Unavailabl e Source Comments Patient records contain information from all sites at [facility]. For routine questions regarding patient records, call [phone] during business hours, M-F 8:00 AM - 5:00 PM Central Time. Record requests for emergency care only can be directed to [phone] at any time.[facility] Allergies No known active allergies Immunizations Name [...] 169 cm (5' 6.54) 07/07/2014 8:03 AM CORPORATE SALES TRAINER Body Mass Index 35.89 07/07/2014 8:03 AM CORPORATE SALES TRAINER Plan of Treatment Not on file Care Teams Conference Concierge Relationship Specialty Start Date End Date Elsewhere, Pcp PCP - General 02/09/19
--- NOTE | 2023-06-20 17:00 | P.LACCB_ITS ---
Consult Note - Mom Date of Visit Date of visit: 06/20/23 senior telecommunications consultant: Mary Deal Visit Code: Visit Patient's Information Phone number: [phone] : 1 Para: 1 Allergies No Known Drug Allergies Allergy (Verified 06/17/23 01:08) Mother's Medical History: Medical History (Updated 06/20/23 @ 00:00 by Background Daemon) A1GDM Delivery Information Delivery type: Vaginal Weeks Gestation: 39.4 Gestational Age: AGA Weight: 3.015 kg Discharge Weight: 2.91 kg Baby's Information Baby's Age at Visit: 3 days Baby's Provider or Clinic: Dr. Lopez Jaundice: Yes Reason for Consult Reason for Consult: concern for latch Past Experience Past Experience: No Current Frequency of Day Feedings: every 2.5 - 3 hours around the clock Both Breasts: Yes Suck: hasn't really been suckling Latch: will latch but isn't very wide Length of Time: mom tries for about 30 minutes Pumping Pumping: Yes (started pumping about 24 hours ago (about 3 times total))) Quantity Pumped: up to 15 ml total each time Supplementing EMB Supplement: Yes (mom has given baby everything she's pumped) Formula Supplement: No Baby Elimination Number of Wet Diapers a Day: 3 - 4 Number of BM a Day: 3, meconium Breast/Nipple Condition Breast Information: WNL Engorgement: No Maternal Nipple Condition - Left: Short and Flat Nipple (everts with stimulation) Maternal Nipple Condition - Right: Short and Flat Nipple (everts with stimulation) Sore Nipples: No Onsite Pre-Feed weight: 2.858 kg Post-Feed weight: 2.864 kg Milk Transferred (mL): 6 Assessments/Interventions Assessments/Interventions: Met with mom and this now 3 day old ex- term AGA baby for consult. Mom reports they were d/c'd on 06/18 and she's had a hard time latching baby at home. She attempts to nurse baby every 2.5 - 3 hours. Baby will latch but it's not particularly wide; she won't really suckle or will give up after just a few suckles. Mom tried a nipple shield in the hospital but reported it was really pinchy. Because she wasn't sure baby was getting much at breast she started pumping yesterday afternoon (has her sister's used [employer], is considering purchasing a hands free pump). She's pumped about 3 times since then getting about 15 ml each time which she has given to baby. Breasts WNL- symmetrical with rounded lower quadrants, intramammary distance < 1.5 inches. Nipples are flat and somewhat short but maude with stimulation, no damage noted. Baby has gained 58 grams since her NB visit on 06/19. Mom denies any caput/cephalohematoma at delivery and reports baby has equal ROM when turning her head/moving her extremities. Baby's palate is a little high. Her upper frenulum is WNL. She was gaggy on a finger and mom reports she gagged at the breast as well when mom was trying the shield (no issues with the bottle or pacifier). The tongue had good lateral movement. Was unable to visualize the lower frenulum. Baby is jaundiced to her abdomen. TSB on 06/19 = 13.5. The TCB today = 14.7 and per bili tool didn't need to be confirmed with a TSB. Mom reports since the PCP visit on 06/19 baby has had three meconium stools and three voids. Mom attempted to latch baby to the right side without success. Baby would latch but stop after 3 - 4 suckles. When a 20 mm nipple shield was used, baby was able to maintain the latch and mom reported it was more comfortable than it had been in the hospital. The latch appeared fairly deep and baby nursed with stimulation for about 10 minutes. Mom offered the right side and again the baby was able to latch with the shield. After about another 10 minutes she came off and when weighed had transferred 4 ml (milk was seen in the shield both times). Mom put her back on the right side and after another 5 - 7 minutes she transferred 2 more ml for a total of 6 ml. Mom was measured and a flange size was suggested. Gave a few recommendations on hands free pumps; also discussed they may not be as strong as the traditional pumps. Plan: 1. Mom really wanted to avoid formula supplementation if at all possible. She was instructed to nurse ALD or at least every three hours, offering both sides. Suggested she use the nipple shield and if needed dad can give a little squirt of EBM or mom can express some milk into the shield to help baby get started. OK to keep the nursing sessions to 20 - 30 minutes total. 2. Mom will pump for 10 - 15 minutes after every feeding until the next appointment. 3. POC will supplement baby with everything mom gets, paced feeding was discussed. Also reviewed baby's this age need 15 - 30 ml with each feeding. 4. Will f/u for a pre and post weight check on 06/22/23. Meds Home Medications and Allergies Home Medications Medication Instructions Recorded Confirmed Type docosahexaenoic acid 200 mg mg PO 12/14/22 06/12/23 History capsule ( DHA) Allergies Allergy/AdvReac Type Severity Reaction Status Date / Time No Known Drug Allergies Allergy Verified 06/17/23 01:08
== END 2023-06-20 13:03 | disposition home or self-care (01) ==
LOC: OB LAC 13:02
PROVIDERS: Visit Provider Advanced Practice Midwife
DX: Z39.1 Encounter for care and examination of lactating mother (principal)
CPT/HCPCS: G0463

== ENCOUNTER 2024-07-08 10:02 | Outpatient (CLI) | payer BC, SELFPAY | END 2024-07-08 10:03 | disposition home or self-care (01) | LOC: NFLDREF 10:02 | PROVIDERS: Visit Provider Obstetrics & Gynecology | DX: O20.9 Hemorrhage in early pregnancy, unspecified (principal) | CPT/HCPCS: 84702 ==

== ENCOUNTER 2024-07-10 10:20 | Outpatient (CLI) | payer BC, SELFPAY | END 2024-07-10 10:21 | disposition home or self-care (01) | LOC: NFLDREF 07-14 03:44 | PROVIDERS: Visit Provider Obstetrics & Gynecology | DX: O20.9 Hemorrhage in early pregnancy, unspecified (principal) | CPT/HCPCS: 84702; 86850 ==

== ENCOUNTER 2024-07-15 10:15 | Outpatient (CLI) | payer BC, SELFPAY | END 2024-07-15 10:16 | disposition home or self-care (01) | LOC: NFLDREF 07-16 02:25 | PROVIDERS: Visit Provider Obstetrics & Gynecology | DX: O03.9 Complete or unspecified spontaneous abortion without complication (principal) | CPT/HCPCS: 84702 ==

== ENCOUNTER 2024-07-22 10:02 | Outpatient (CLI) | payer BC, SELFPAY | END 2024-07-22 10:03 | disposition home or self-care (01) | LOC: NFLDREF 07-26 01:37 | PROVIDERS: Visit Provider Obstetrics & Gynecology | DX: O03.9 Complete or unspecified spontaneous abortion without complication (principal) | CPT/HCPCS: 84702 ==

== ENCOUNTER 2025-03-03 09:52 | Outpatient (CLI) | payer BC, SELFPAY ==
--- NOTE | 2025-03-03 10:15 | CRLHL7_ITS ---
For Patients: As a result of the Cures Act, medical imaging exams and procedure reports are released immediately into your electronic medical record. You may view this report before your referring provider. If you have questions, please contact your health care provider. OB ULTRASOUND INDICATION: Dating. TECHNIQUE: Real time grayscale imaging of the fetus was performed. Transabdominal. LMP: 12/23/2024. TRIXIE by LMP: 09/29/2025. GA: 10 w, 0 d. Previous US: No. CRL: 3.8 cm. 10 w 5 d. TRIXIE: 09/23/2025. FHR: 179 BPM. Gestational sac: 4.9 cm. Appears within normal limits. Yolk sac: N/V. Right ovary: N/V. Left ovary: Within normal limits. 4.6 x 3.4 x. 4.8 cm. CL. IMPRESSION: 1. Single living intrauterine measures 10 weeks 6 days with sonographic due dated 09/23/2025. 2. Non-visualization of the right ovary. Corpus luteal cyst left ovary. 3. Non-visualization of a yolk sac. Ibrahima Thomas M.D. Diagnostic Radiologist [email or web address]/Dictated by: Ibrahima Thomas MD @ 03/03/2025 3:39:00 PM (Electronically Signed)
== END 2025-03-03 09:53 | disposition home or self-care (01) ==
LOC: US 09:53
PROVIDERS: Visit Provider Midwife
DX: O34.81 Maternal care for other abnormalities of pelvic organs, first trimester (principal); N83.12 Corpus luteum cyst of left ovary; Z3A.10 10 weeks gestation of pregnancy
CPT/HCPCS: 76801

== ENCOUNTER 2025-03-03 11:20 | Outpatient (CLI) | payer BC, SELFPAY | END 2025-03-03 11:21 | disposition home or self-care (01) | PROVIDERS: Visit Provider Midwife | DX: Z34.91 Encounter for supervision of normal pregnancy, unspecified, first trimester (principal); Z3A.10 10 weeks gestation of pregnancy | CPT/HCPCS: 83020; 83021; 85660; 86592; 86703; 86704; 86706; 86762; 86787; 86803; 86850; 86900; 86901; 87086; 87340 ==

== ENCOUNTER 2025-05-14 07:14 | Outpatient (CLI) | payer BC, SELFPAY ==
--- NOTE | 2025-05-14 07:15 | CRLHL7_ITS ---
For Patients: As a result of the Century Cures Act, medical imaging exams and procedure reports are released immediately into your electronic medical record. You may view this report before your referring provider. If you have questions, please contact your health care provider. OB ULTRASOUND SURVEY TRIXIE by LMP: 09/29/2025. GA: 20 w, 2 d. INDICATION: anatomy survey. TECHNIQUE: Real time grayscale imaging of the fetus was performed. Evaluate anatomy. Transabdominal imaging performed. position: Vertex. Cervix: Visualized. Technique: Transabdominal. Length of closed cervix: 4.1 cm. Placenta/cord: Posterior. Technique: Transabdominal. Placenta tip to internal OS: 6.9 cm. Umbilical Cord: 3-vessel cord. Placenta insertion: Central. Amniotic Fluid: 4.5 cm SDP (greater than/equal to: 2- less than 8 cm). SURVEY: Observed Structures. Calvarium/Spine: Cerebellum: 2.2 cm, 21 w 6 d. Cisterna Magna: 3.6 mm. Nuchal Fold: 3.8 mm. Lateral Ventricle: 8.2 mm. CSP: Yes. Midline Falx: Yes. Choroid Plexus: Yes. Spine: Yes. Abdomen: Stomach: Yes. Abd Cord Insertion: Yes. Urinary Bladder: Yes. Kidneys: Yes. Diaphragm: Yes. Face: Nose/lips: Yes. Orbital view: Yes. Profile: Yes. Limbs: Upper Extremities: Yes. Lower Extremities: Yes. Hands: Yes. Feet: Yes. Vascular: 4-Chamber Heart: Yes. LVOT: Yes. RVOT: Yes. 3VV: Yes. 3VTV: Yes. BPD: 5.1 cm. 21 w, 2 d, 87%. HC: 18.9 cm. 21 w, 1 d, 80%. AC: 16.5 cm. 21 w, 4 d, 82%. FL: 3.5 cm. 21 w, 0 d, 69%. FL/AC ratio: 21.25%. HC/AC ratio: 1.15. heart rate: 171 bpm. age by this US: 21 w, 3 d. TRIXIE by this US: 09/21/2025. EFW: 413g. Weight: 0 lbs., 15 oz. Percentile by TRIXIE: 93%. IMPRESSION: 1. Sonographic gestational age 21 weeks 3 days and sonographic due date 09/21/2025. Sonographic age is 8 days ahead of the clinical age. 2. Estimated weight 93rd percentile. Abdominal circumference 82nd percentile. 3. Normal anatomic survey. Ibrahima Thomas M.D. Diagnostic Radiologist [email or web address]/Dictated by: Ibrahima Thomas MD @ 05/14/2025 8:29:00 AM (Electronically Signed)
== END 2025-05-14 07:15 | disposition home or self-care (01) ==
PROVIDERS: Visit Provider Advanced Practice Midwife
DX: O36.62X0 Maternal care for excessive fetal growth, second trimester, not applicable or unspecified (principal); Z3A.20 20 weeks gestation of pregnancy
CPT/HCPCS: 76805